=== PATIENT | female | born 1970 | race Caucasian/White ===

== ENCOUNTER 2023-06-15 07:34 | Outpatient (REF) | payer OTHER, SELFPAY ==
[2023-06-15 07:50] LABS: MANUAL DIFF FLAG NO
[2023-06-15 08:13] LABS: Basophils Absolute Auto 0.1 X10*3/uL (0.0-0.2); Basophils Percent Auto 1.2 % (0-2); Eosinophils Absolute Auto 0.2 X10*3/uL (0.0-0.4); Eosinophils Percent Auto 3.1 % (0-4); Hematocrit 40.9 % (37.0-47.0); Hemoglobin 13.5 g/dl (12.0-16.0); Imm Gran Abs Auto 0.01 X10*3/uL (0.00-0.03); Imm Gran Pct Auto 0.2 % (0.0-0.4); Lymphocytes Absolute Auto 1.1 X10*3/uL (1.2-4.9); Lymphocytes Percent Auto 21.9 % (20-40); Mean Corpuscular Hemoglobin 30.5 pg (27.0-33.0); Mean Corpuscular Volume 92.3 fL (80.0-98.0); Mean Platelet Volume 10.9 fL (9.4-12.3); Monocytes Absolute Auto 0.3 X10*3/uL (0.1-1.2); Neutrophils Absolute Auto 3.5 x10*3/uL (2.0-8.3); Neutrophils Percent Auto 67.6 % (45-73); Platelet Count 238 X10*3/uL (160-400); Red Blood Count 4.43 X10*6/uL (4.20-5.50); Red Cell Distribution Width 12.5 % (11.0-16.0); White Blood Count 5.2 X10*3/uL (4.8-10.8)
[2023-06-15 08:41] LABS: Alanine Aminotransferase 14 U/L (0-31); Albumin Level 4.2 g/dL (3.5-5.0); Alkaline Phosphatase 47 U/L (39-117); Anion Gap 13 (12-20); Aspartate Amino Transferase 14 U/L (5-31); Bilirubin Total 0.6 mg/dL (0.0-1.0); Blood Urea Nitrogen 11 mg/dL (9-16); Calcium 9.6 mg/dL (8.4-10.2); Carbon Dioxide 23 mmol/L (22-29); Chloride 109 mmol/L (96-108); Cholesterol 185 mg/dL (<200); Estimated Glomerular Filt Rate > 60; Glucose Random 103 mg/dL (60-115); HDL Cholesterol 54 mg/dL (>40); LDL Cholesterol Calculated 116 mg/dL (<100); Potassium 4.1 mmol/L (3.3-5.1); Sodium 141 mmol/L (135-145); Triglycerides 78 mg/dL (<150)
[2023-06-15 08:59] LABS: HIV AB/AG Nonreactive (Nonreactive); HIV Num 1 0.06 S/CO (0.00-0.99); ~HepC Num1 0.08 S/CO (0.00-0.79); ~Hepatitis B Surface Antibody REACTIVE (Nonreactive); ~Hepatitis C Antibody Nonreactive (Nonreactive)
== END 2023-06-15 07:35 | disposition home or self-care (01) ==
LOC: HO.LAB 07:34
PROVIDERS: PCP Physician Assistant; Visit Provider Physician Assistant
DX: Z00.00 Encounter for general adult medical examination without abnormal findings (principal); Z11.59 Encounter for screening for other viral diseases; Z11.4 Encounter for screening for human immunodeficiency virus [HIV]; Z72.89 Other problems related to lifestyle
CPT/HCPCS: 36415; 80053; 80061; 85025; 86706; 86803; 87389

== ENCOUNTER 2024-10-01 15:19 | Outpatient (REF) | payer OTHER, SELFPAY ==
--- OUTSIDE RECORDS SUMMARY | 2024-10-01 15:21 | XMS_ITS | Clinical Summary ---
Author Organization [facility] Address [address] [place] [address] Care Team Providers Care Agricultural Purchasing Agent Name Role Phone Ofelia Fatima PA-C Primary Care Provider + [phone] Source Comments PLEASE NOTE, if this patient is a minor, it may be UNLAWFUL to discuss sensitive information that is contained in these records (such as FAMILY PLANNING, MENTAL HEALTH or SUBSTANCE ABUSE) with the minor patient's parent or other person without the patient's specific authorization.[facility] Allergies No known active allergies Medications multivitamin-ir on-folic acid (CERTAVITE ANTIOXIDANT) 18-400 mg-mcg tabletIndicatio ns:Menopause Take 1 Tablet by mouth once daily with breakfast 90 Tablet 1 5 Active buPROPion HCL (WELLBUTRIN) 100 mg tabletIndicatio ns:Other depression TAKE 1 TABLET BY MOUTH 2 (TWO) TIMES DAILY 60 Tablet 5 Active gabapentin (NEURONTIN) 100 mg capsuleIndicati ons:Vasomotor symptoms due to menopause Take 1 Capsule by mouth nightly at bedtime 30 Capsule 3 5 Active Active Problems Problem Noted Date Diagnosed Date Paresthesia of tongue 09/24/2020 Depression 06/24/2020 Irritable bowel syndrome with diarrhea 1 Encounters Date Type Department Care Team Description 08/27/2024 3:40 PM EDT Telemedicine Visit [address] [phone] Ofelia Fatima PA-C Vasomotor symptoms due to menopause (Primary Dx) 08/08/2024 2:00 PM EDT Office Visit [address] [phone] Ofelia Fatima PA-C Menopause (Primary Dx); Breast cancer screening by mammogram; Screening for colorectal cancer; Vasomotor symptoms due to menopause from Last 3 Months Immunizations Immunization Administration Dates Next Due MMR (MMR II/Priorix) 12/14/2022,11/04/2022 PFIZER COVID VACCINE, PURPLE CAP, 12+ 06/12/2020 ,05/22/2020 Td(adult),2 Lf tetanus toxoid,preservative free 11/10/2019 ZOSTER VACCINE, RECOMBINANT (SHINGRIX) ,06/24/2020 Family History Medical History Relation Name Comments No Known Problems Daughter 1 No Known Problems Daughter 2 Emphysema Father Prostate Cancer Father Lung Cancer Mother Stroke Mother No Known Problems Son Relation Name Status Comments Daughter 1 Alive Daughter 2 Alive Father Mother Son Alive Social History Tobacco Use Types Packs/Day Years Used Date Smoking Tobacco: Former Cigarettes Q uit: 1992 Smokeless Tobacco: Never Tobacco Cessation:Counseling Given: Not Answered Comments:Quit 30 years ago - smoked off and on for about 10 years Alcohol Use Standard Drinks/Week Comments Never 0 (1 standard drink = 0.6 oz pur e alcohol) Social Connections Answer Date Recorded Connectedness 0 09/30/2021 Financial Resource Strain Answer Date R ecorded Financial Resource Strain 0 2021 Stress Answer Date Recorded Stress 0 09/30/2021 Physical Activity Answer Date Recorded Physical Activity 0 06/24/2020 Food Insecurity Answer Date Recorded Food 0 09/30/2021 Transportation Needs Answer Date Record ed Transportation 0 09/30/2021 Housing Stability Answer Date Recorded Housing 0 09/30/2021 Safety and Environment Answer Date Emilio rded Safety 0 09/30/2021 Utilities Answer Date Recorded Utilities 0 09/30/2021 Employment Answer Date Recorded Employment 0 06/24/2020 Comments No Sex and Gender Information Value Date Recorded Sex Assigned at Female 06/24/2020 8:02 PM PST Legal Sex Female 10:57 AM PST Gender Identity Female 06/24/2020 8:02 PM PST Sexual Orientation Straight 06/24/2020 8: 02 PM PST Last Filed Vital Signs Vital Sign Reading Time Taken Comments Blood Pressure 110/70 08/08/2024 2:10 PM EDT Pulse 80 08/08/2024 2:10 PM EDT Temperature 37.2 ??C (99 ??F) 08/08/2024 2:10 PM EDT Respiratory Rate 18 08/08/2024 2:10 PM EDT Oxygen Saturation 99% 08/08/2024 2:10 PM EDT Inhaled Oxygen Concentration - - Weight 68.9 kg (152 lb) 08/08/2024 2:10 PM EDT Height 160 cm (5' 3 ) 08/08/2024 2:10 PM EDT Body Mass Index 26.93 08/08/2024 2:10 PM EDT Plan of Treatment Health Maintenance Due Date Last Done Comments Anxiety Screening 1969 HPV Screening 1969 Hepatitis C Screening 1969 Pap + HPV 1969 Imm-Hepatitis B (1 of 3 - 19+ 3-dose series) 1988 Cervical Cancer Screening [address] Colonography 2014 Colonoscopy 2014 Colorectal Cancer Screening 2014 FIT/gFOBT 2014 Fecal DNA 2014 Flexible Sigmoidoscopy 2014 Imm-DTaP/Tdap/Td (1 - Tdap) 11/11/2019 11/10/2019 Breast Cancer Screening (Mammogram) 10/30/2022 10/30/2021, 10/22/2021 Depression Monitoring 09/07/2023 06/08/2023 , 09/30/2021, 06/02/2021, Additional history exists Alcohol and Drug Screen 05/16/2024 06/08/19, 06/02/2021, 06/24/2020 Annual Wellness (Adult): Indicated (All Coverage) 06/08/2024 06/08/2023, 09/30/2021, 06/24/2020 Diabetes Screening 09/30/2024 09/30/2021, 0 09/30/2021, 06/24/2020, Additional history exists [id number] ( season) 2024 04/17/2022, 06/12/2020, 05/22/2020 Postponed from 01/15/2024 (Patient postponement) Imm-Influenza (#1) 2024 Postponed from 01/15/2024 (Patient postponement) Hypertension Screening (#1) 08/08/2025 Tobacco Screening 08/27/2025 08/27/2024 Lipid Screening 09/30/2026 09/30/2021, 06/24/2020 HIV Screening Completed 06/24/2020 Imm-Zoster, Recombinant Completed 08/22/2020, 06/24 Cervical Ablation/Cold-Knife Conization Discontinued Cervical Cryotherapy Discontinued Colposcopy Discontinued Endometrial Biopsy Discontinued Excision/Leep Discontinued HPV Genotyping Discontinued Vaginal Pap Discontinued Vulvoscopy Discontinued Procedures Procedure Name Priority Date/Time Associated Diagnosis Comments HISTORIC MAMMOGRAM 10/30/2021 3: 00 AM EDT COMPREHENSIVE METABOLIC PANEL Routine 09/30/2021 2:55 PM EDT Encounter for general adult medical examination w/o abnormal findings LIPID PANEL Routine 09/30/2021 2:55 PM EDT Encounter for general adult medical examination w/o abnormal findings ANTIBODY HIV-1&HIV-2 SINGLE RESULT Routine 06/24/2020 2:55 PM EST Encounter for general adult medical examination w/o abnormal findings from Last 3 Months or Most Recently Relevant to Health Maintenance Results * HISTORIC MAMMOGRAM (10/30/2021 3:00 AM EDT) 10/30/2021 3:00 AM EDT Perla ODONNELLP IM MAMMO Final Resul t * LIPID PANEL (09/30/2021 2:55 PM EDT) CHOLESTEROL, TOTAL 167 <200 mg/dL [facility] HDL CHOLESTEROL 56 > OR = 50 mg/dL [facility] TRIGLYCERIDES 102 <150 mg/dL [facility] LDL-CHOLESTEROL 91 99 mg/dL (calc) [facility] Comment: Reference range: <100 Desirable range <100 mg/dL for primary prevention; ?? <70 mg/dL for patients with CHD or diabetic patients with > or = 2 CHD risk factors. LDL-C is now calculated using the Josh calculation, which is a validated novel method providing better accuracy than the Friedewald equation in the estimation of LDL-C. Ifeanyi FALLON et al. LISSETTE. 2013;310(19): 9154-0900 (http://education.Zeel/faq/XMR027) CHOL/HDLC RATIO 3.0 <5.0 (calc) [facility] NON-HDL CHOLESTEROL 111 <130 mg/dL (calc) [facility] Comment: For patients with diabetes plus 1 major ASCVD risk factor, treating to a non-HDL-C goal of <100 mg/dL (LDL-C of <70 mg/dL) is considered a therapeutic option. Blood Blood / Unknown 09/30/2021 2 :55 PM EDT 09/30/2021 2:56 PM EDT Narrative [facility] - 10/01/2021 4:29 AM EDT FASTING:NO Perla ODONNELLP LAB - BLOOD DRAW Final Resu lt [facility] [address] [address], [facility] [address] [address] * COMPRE METAB PANEL (09/30/2021 2:55 PM EDT) [facility] Signature GLUCOSE 70 65 - 139 mg/dL [facility] Comment: ?Non-fasting reference interval UREA NITROGEN (BUN) 14 7 - 25 mg/dL [facility] CREATININE (blood) 0.68 0.50 - 1.05 mg/dL [facility] Comment: For patients >49 years of age, the reference limit for Creatinine is approximately 13% higher for people identified as -Thai. GFR ESTIMATED 101 > OR = 60 mL/min/1 .73m2 [facility] EGFR 117 > OR = 60 mL/min/1 .73m2 [facility] BUN/CREATININE RATIO NOT APPLICABLE [facility] SODIUM 142 135 - 146 mmol/L [facility] POTASSIUM 4.3 3.5 - 5.3 mmol/L [facility] CHLORIDE 106 98 - 110 mmol/L [facility] CARBON DIOXIDE 28 20 - 32 mmol/L [facility] CALCIUM 9.4 8.6 - 10.4 mg/dL [facility] PROTEIN, TOTAL 6.8 6.1 - 8.1 g/dL [facility] ALBUMIN 4.2 3.6 - 5.1 g/dL [facility] GLOBULIN 2.6 1.9 - 3.7 g/dL (calc) [facility] ALBUMIN/GLOBULIN RATIO 1.6 1.0 - 2.5 (calc) [facility] BILIRUBIN, TOTAL 0.3 0.2 - 1.2 mg/dL [facility] ALKALINE PHOSPHATASE 49 37 - 153 U/L [facility] AST 13 10 - 35 U/L [facility] ALT 8 6 - 29 U/L [facility] Blood Blood / Unknown 09/30/2021 2 :55 PM EDT 09/30/2021 2:56 PM EDT Narrative [facility] - 10/01/2021 4:29 AM EDT FASTING:NO Perla ODONNELLP LAB - BLOOD DRAW Edited Res ult - Final [facility] [address] [address], [email or web address] [address] [address] * HIV-1 & HIV-2 ANTIBODIES (06/24/2020 2:55 PM EST) [facility] HIV 1 AND 2 ANTIBODY SCREEN NEGATIVE NEGATIVE [facility] Comment: This assay is a 4th generation assay allowing for earlier detection of HIV infection by detecting the presence of the HIV-1 p24 antigen as well as the traditional antibodies to HIV type 1 (including group O) and type 2. ??Use of a 4th generation assay is the current CDC recommendation for HIV screening. Blood Blood / Unknown 06/24/2020 2 :55 PM EST 06/24/2020 3:07 PM EST Narrative [facility] - 06/24/2020 6:10 PM EST [facility], a member of [address] [address] Moving Worker - Kaitlin Nolasco [place] [id number] ORD# [id number] Perla Cage [employer] LAB - BLOOD DRAW Final Resu lt [facility] [address] [place] [address], from Last 3 Months or Most Recently Relevant to Health Maintenance [place] [address] [employer] [place] Member Subscriber Plan / Payer (Ef fective 2022-Present) Name:Dana Jean Baptiste Relation to Subscriber:Self Name:Dana Jean Baptiste Payer ID:[id number] Type:Indemnity Address: [address] [address] [place] [address] Care Teams Agricultural Purchasing Agent Relationship Specialty Start Date End Date Ofelia Fatima PA-C [address] [place] [address] PCP - General 10/23/21
--- OUTSIDE RECORDS SUMMARY | 2024-10-01 15:21 | XMS_ITS | Clinical Summary ---
Author Organization [facility] ity Address [address] [place] [address] Care Team Providers Care Hazmat Truck Driver Name Role Phone Unavailable Primary Care Provider Unavailabl e Social History Tobacco Use Types Packs/Day Years Used Date Smoking Tobacco: Never Assessed Comments Unknown Sex and Gender Information Value Date Recorded Sex Assigned at Not on file Legal Sex Female 2:21 AM EST Gender Identity Not on file Sexual Orientation Not on file Plan of Treatment Health Maintenance Due Date Last Done Comments Breast Cancer Screening 1969 DTaP,Tdap,and Td Vaccines (1 - Tdap) 1988 Hepatitis B Vaccines (1 of 3 - 19+ 3-dose series) 1988 Cervical Cancer Screening: P ap Smear 1990 Pneumococcal Vaccine: 50+ Ye ars (1 of 1 - PCV) 12/25/2019 Zoster Vaccines (1 of 2) 12/25/2019 COVID-19 Vaccine ( - 2023-2 5 season) 2024 Influenza Vaccine (Season Ended) 2025 HIB Vaccines Aged Out No longer eligi ble based on patient's age to complete this topic HPV Vaccines Aged Out No longer eligi ble based on patient's age to complete this topic Hepatitis A Vaccines Aged Out No long er eligible based on patient's age to complete this topic IPV Vaccines Aged Out No longer eligi ble based on patient's age to complete this topic MMR Vaccines Aged Out No longer eligi ble based on patient's age to complete this topic Meningococcal ACWY Vaccine Aged Out N o longer eligible based on patient's age to complete this topic Meningococcal B Vaccine Aged Out No l onger eligible based on patient's age to complete this topic Pneumococcal Vaccine: Pediat rics (0 to 5 Years) and At-Risk Patients (6 to 64 Years) Aged Out No longer eligible b ased on patient's age to complete this topic RSV Immunization Patients Un lino 20 months Aged Out No longer eligible b ased on patient's age to complete this topic Varicella Vaccines Aged Out No longer eligible based on patient's age to complete this topic
== END 2024-10-01 15:20 | disposition home or self-care (01) ==
LOC: HO.MAMMO 15:19
PROVIDERS: PCP Physician Assistant; Visit Provider Physician Assistant
DX: Z12.31 Encounter for screening mammogram for malignant neoplasm of breast (principal)
CPT/HCPCS: 77063; 77067

== ENCOUNTER → 2024-10-01 15:30 | Outpatient (BNV) | payer OTHER, SELFPAY | PROVIDERS: PCP Physician Assistant; Visit Provider Internal Medicine | DX: Z12.31 Encounter for screening mammogram for malignant neoplasm of breast (principal) | CPT/HCPCS: 77063; 77067 ==

== ENCOUNTER 2025-01-24 13:25 | Outpatient (AMB) | payer OTHER, SELFPAY ==
--- NOTE | 2025-01-24 13:46 | A.OFFVIS_ITS ---
Vital Signs 3 01/24/25 13:49 Height 5 ft 4 in Weight 149 lb 14.629 oz BMI 25.7 BP 103/64 Blood Pressure Location Lt brachial Position Sitting Pulse 70 Intake Visit Reasons: Colonoscopy Screening Intake Note: Dana presents in the office as a colonoscopy screening. CC: She states that she is has IBS - never had a colo before! Allergies No Known Allergies Allergy (Unverified 01/31/20 16:21) HPI HPI Colonoscopy Screening: Details: 54-year-old female here for preprocedural meeting to discuss a screening colonoscopy. She is referred by [facility] in [place]. PMX Depression IBS/D Tongue paresthesias * SURGICAL HISTORY cholecystectomy Tubal ligation Uterine ablation * ALLERGIES: NKDA * [employer] LABS: None since last year TODAY'S VISIT ? Prior colonoscopy: NO Bowel or upper GI problems: SHe suffers IBS-D which she controls with Imodium no upper GI problems. Problems with anesthesia or sedation: No Cardiac or respiratory problems: NO Infectious disease problems: NO Family history: No [facility] Surgical History (Updated 01/24/25 @ 15:36 by HAIRSH White) S/P endometrial ablation History of tubal ligation History of cholecystectomy Review of Systems Const Denies fatigue, Denies fever(s), Denies night sweats, Denies poor appetite and Denies weight loss ENT Reports Normal hearing present, Denies dysphagia, Denies odynophagia, Denies throat swelling and Denies tongue swelling Card Reports no additional complaints Resp Reports no additional complaints GI Details: Denies abdominal pain, Denies melena, Denies bloating, Denies hematochezia, Reports constipation, Denies GI cramping, Denies dysphagia, Denies excessive flatus, Denies early satiety, Denies heartburn, Denies diarrhea, Reports loose stools, Denies nausea, Denies odynophagia, Denies vomiting and Denies hematemesis Skin/Breast Denies pruritus, Denies lesions, Denies rash and Denies jaundice Neuro Reports Normal hearing present and Denies Abnormal speech present Endo Denies fatigue Aller/Immun Denies throat swelling and Denies tongue swelling Physical Exam Vital Signs: Last Vital Signs Pulse 70 01/24/25 13:49 BP 103/64 01/24/25 13:49 BMI result Body Mass Index 25.7 Const General: cooperative, no acute distress, well developed and well groomed Nutritional Appearance: average body habitus and well nourished Orientation/consciousness: oriented to person, oriented to place and oriented to time Limitations: No language barrier HEENT Head: Yes normocephalic and Yes atraumatic Eyes General: appearance normal, both eyes and all related structures Pupils: Equal, round and reactive pupils present Neck Neck: Yes normal visual inspection and Yes no lymphadenopathy Thyroid: Thyroid normal Resp Effort & Inspection: normal respiratory effort and able to speak in complete sentences Auscultation: clear to auscultation bilaterally Cardio Rate: regular rate Rhythm: regular rhythm Heart sounds: Normal, physiologic split S2 sound present Peripheral pulses: radial pulses present and posterior tibial pulses present GI Inspection: No distended, No Abdominal panniculus present and Yes striae Palpation (GI): Soft to palpation, nontender, no guarding, not rigid and No hepatosplenomegaly present Percussion: Yes normal to percussion Auscultation: normal bowel sounds Rectal Exam - Female: deferred Abdomen image: 2 1. Surgical scars 2. Skin General skin exam: no rashes or lesions noted, turgor normal, skin not dry, no jaundice, No spider nevi and no striae Rashes: no rashes Nails: normal Neuro General: oriented to person, oriented to place and oriented to time Cranial nerves: Yes Equal, round and reactive pupils present and Yes Normal hearing present Speech: No Abnormal speech present Extrem General: Yes normal to inspection, No clubbing, No cyanosis and No edema Psych Appearance: grossly normal and well kempt Mental Status: mental status grossly normal Speech and movement: Normal speech and movement present Affect: normal affect Attitude: cooperative Thought process: Normal thought process present and not confabulating Thought content: Normal thought content present Insight: Good insight present (Psych) Judgement: Good judgement present (Psych) Assessment & Plan Assessment & Plan (1) Pre-op examination: Code(s): Z01.818 - Encounter for other preprocedural examination Category: Medical Plan ? Prior colonoscopy: NO Bowel or upper GI problems: SHe suffers IBS-D which she controls with Imodium no upper GI problems. Problems with anesthesia or sedation: No Cardiac or respiratory problems: NO Infectious disease problems: NO Family history: No Orders: Orders 2 Complete Blood Count Auto Diff Today Z81 - Encounter for other preprocedural examination Comprehensive Met. Panel Today Z81 - Encounter for other preprocedural examination Referrals 2 GI Procedure Notification Z81 - Encounter for other preprocedural examination Medications: New 2 sod sulf-pot chloride-mag sulf 1.479-0.188- 0.225 gram (Sutab) PO PER PKG DIR for colonoscopy prep 24 tabs 0RF Coding Level of Care Code New Pt Level 3 (24897) Diagnoses Pre-op examination Z
[2025-01-24 13:49] VITALS: BP 103/64; PULSE 70; BMI 25.7
--- OUTSIDE RECORDS SUMMARY | 2025-01-24 17:23 | XMS_ITS | Clinical Summary ---
Author Organization [facility] Address [address] [place] [address] Care Team Providers Care Ordnance Handler Name Role Phone Ofelia Fatima PA-C Primary Care Provider + [phone] Source Comments PLEASE NOTE, if this patient [...] with breakfast 90 Tablet 1 5 Active gabapentin (NEURONTIN) 100 mg capsuleIndicati ons:Vasomotor symptoms due to menopause TAKE 1 CAPSULE BY MOUTH NIGHTLY AT BEDTIME 30 Capsule 3 5 Active buPROPion HCL (WELLBUTRIN) 100 mg tabletIndicatio ns:Other depression TAKE 1 TABLET BY MOUTH 2 (TWO) TIMES DAILY. 60 Tablet 2 5 Active Active Problems Problem Noted Date Diagnosed Date Paresthesia of tongue 09/24/2020 Depression 06/24/2020 Irritable bowel syndrome with diarrhea 1 Immunizations Immunization Administration Dates Next Due MMR (MMR II/Priorix) 12/14/2022,11/04/2022 PFIZER COVID VACCINE, PURPLE CAP, 12+ 06/12/2020 ,05/22/2020 Td (adult),2 Lf tetanus toxo id (TDVAX), preservative free 11/10/2019 ZOSTER VACCINE, RECOMBINANT (SHINGRIX) ,06/24/2020 [...] 80 08/08/2024 2:10 PM EDT Temperature 37.2 C (99 F) 08/08/2024 2:10 PM EDT Respiratory Rate 18 [...] 1969 Imm-Hepatitis B (1 of 3 - 19 + 3-dose series) 1988 Cervical Cancer Screening [address] Colonography 2014 Colonoscopy 2014 Colorectal Cancer Screening 2014 FIT/gFOBT 2014 Fecal DNA 2014 Flexible Sigmoidoscopy 2014 Imm-DTaP/Tdap/Td (1 - Tdap) 11/11/2019 11/10/2019 Imm-Pneumococcal 50+ (1 of 1 - PCV) 12/25/2019 Depression Monitoring 09/07/2023 06/08/2023 , 09/30/2021, 06/02/2021, Additional history exists Alcohol and Drug Screen 05/16/2024 06/08/19 24, 06/02/2021, 06/24/2020 Annual Wellness (Adult): Indicated (All Coverage) 06/08/2024 06/08/2023, 09/30/2021, 06/24/2020 Diabetes Screening 09/30/2024 09/30/2021, 0 09/30/2021, 06/24/2020, Additional history exists Etk-RYTSD-60 ( season) 2025 04/17/2022, 06/12/2020, 05/22/2020 Imm-Influenza (#1) 2025 Hypertension Screening (#1) 08/08/2025 Breast Cancer Screening (Mammogram) 10/01/2025 10/01/2024, 10/30/2021, 10/22/2021 Tobacco Screening 12/12/2025 12/12/2024 Lipid Screening 09/30/2026 09/30/2021, 06/24/2020 HIV Screening Completed 06/24/2020 Imm-Zoster, Recombinant Completed 08/22/2020, 06/24 Cervical Ablation/Cold-Knife Conization Discontinued Cervical Cryotherapy Discontinued Colposcopy Discontinued Endometrial Biopsy Discontinued Excision/Leep Discontinued HPV Genotyping Discontinued Vaginal Pap Discontinued Vulvoscopy Discontinued Procedures Procedure Name Priority Date/Time Associated Diagnosis Comments REFERRAL FOR MAMMOGRAM Routine 3:00 AM EDT Breast cancer screening by mammogram COMPREHENSIVE METABOLIC PANEL Routine 09/30/2021 2:55 PM [...] Recently Relevant to Health Maintenance Results * REFERRAL FOR MAMMOGRAM SCREENING (10/01/2024 3:00 AM EDT) 10/01/2024 3:00 AM EDT Ofelia Fatima PA-C IMG RFL MAMMO Edited Resul t - Final * LIPID PANEL (09/30/2021 2:55 PM EDT) CHOLESTEROL, TOTAL 167 <200 mg/dL [facility] HDL CHOLESTEROL 56 > OR = 50 mg/dL [facility] TRIGLYCERIDES 102 <150 mg/dL [facility] LDL-CHOLESTEROL 91 99 mg/dL (calc) [facility] Comment: Reference range: <100 Desirable range <100 mg/dL for primary prevention; <70 mg/dL for patients with CHD or diabetic patients with > or = 2 CHD risk factors. LDL-C is now calculated using the Josh calculation, which is a validated novel method providing better accuracy than the Friedewald equation in the estimation of LDL-C. Ifeanyi SS et al. LISSETTE. 2013;310(19): 4161-8325 (http://education.[employer]/faq/TJM833) CHOL/HDLC RATIO 3.0 <5.0 (calc) [facility] NON-HDL CHOLESTEROL 111 <130 mg/dL (calc) [facility] Comment: For patients with diabetes plus 1 major ASCVD risk factor, treating to a non-HDL-C goal of <100 mg/dL (LDL-C of <70 mg/dL) is considered a therapeutic option. Blood Blood / Unknown 09/30/2021 2 :55 PM EDT 09/30/2021 2:56 PM EDT Narrative [facility] [facility] [facility] - 10/01/2021 4:29 AM EDT FASTING:NO Perla [facility] - BLOOD DRAW Final Resu lt [facility] [address] [address], [facility] [address] [address] * COMPRE METAB PANEL (09/30/2021 2:55 PM EDT) GLUCOSE 70 65 - 139 mg/dL [facility] Comment: Non-fasting reference interval UREA NITROGEN (BUN) 14 7 - 25 mg/dL [facility] CREATININE (blood) 0.68 0.50 - 1.05 mg/dL [facility] Comment: For patients >49 years of age, the reference limit for Creatinine is approximately 13% higher for people identified as -Beninese. GFR ESTIMATED 101 > OR = 60 mL/min/1 .73m2 [facility] EGFR 117 > OR = 60 mL/min/1 .73m2 [facility] BUN/CREATININE RATIO NOT APPLICABLE 6 - 22 [facility] SODIUM 142 135 - 146 mmol/L [facility] POTASSIUM 4.3 3.5 - 5.3 mmol/L [facility] CHLORIDE 106 98 - 110 mmol/L [facility] CARBON DIOXIDE 28 20 - 32 mmol/L [facility] CALCIUM 9.4 8.6 - 10.4 mg/dL [facility] PROTEIN, TOTAL 6.8 6.1 - 8.1 g/dL [facility] ALBUMIN 4.2 3.6 - 5.1 g/dL [facility] GLOBULIN 2.6 1.9 - 3.7 g/dL (calc) [facility] ALBUMIN/GLOBULIN RATIO 1.6 1.0 - 2.5 (calc) [facility] [employer] [facility] BILIRUBIN, TOTAL 0.3 0.2 - 1.2 mg/dL [facility] ALKALINE PHOSPHATASE 49 37 - 153 U/L [employer] [facility]NOST[facility] AST 13 10 - 35 U/L [facility] ALT 8 6 - 29 U/L [facility] Blood Blood / Unknown 09/30/2021 2 :55 PM EDT 09/30/2021 2:56 PM EDT Narrative [facility] - 10/01/2021 4:29 AM EDT FASTING:NO [facility] - BLOOD DRAW Edited Res ult - Final Performing Organization Address City/[facility]/ZIP Co de Phone Number [facility] [address] [address], [facility] [address] [address] * HIV-1 & HIV-2 ANTIBODIES (06/24/2020 2:55 PM EST) [facility] HIV 1 AND 2 ANTIBODY SCREEN NEGATIVE NEGATIVE [facility] [employer] [facility] Comment: This assay is a 4th generation assay allowing for earlier detection of HIV infection by detecting the presence of the HIV-1 p24 antigen as well as the traditional antibodies to HIV type 1 (including group O) and type 2. Use of a 4th generation assay is the current CDC recommendation for HIV screening. Blood Blood / Unknown 06/24/2020 2 :55 PM EST 06/24/2020 3:07 PM EST Narrative [facility] - 06/24/2020 6:10 PM EST [employer], a member of [address] [address] Teacher'S Assistant - Kaitlin Nolasco MD PT ID [id number] ORD# [id number] [facility] - BLOOD DRAW Final Resu lt Performing Organization Address City/[facility]/ZIP Co de Phone Number [facility] [employer] [address], from Last 3 Months or Most Recently Relevant to Health Maintenance Insurance [place] [address] [facility] Member Subscriber Plan / Payer (Ef fective 2022-Present) Name:Dana Jean Baptiste Relation to Subscriber:Self Name:Dana Jean Baptiste Payer ID:[id number] Type:Indemnity Address: [address] [address] [place] [address] Care Teams Ordnance Handler Relationship Specialty Start Date End Date Ofelia Fatima PA-C [address] [place] [address] PCP - General 10/23/21
== END 2025-01-24 14:46 | disposition home or self-care (01) ==
LOC: HO.HGI 13:25
PROVIDERS: PCP Physician Assistant; Visit Provider Nurse Practitioner
DX: Z01.818 Encounter for other preprocedural examination (principal); Z12.11 Encounter for screening for malignant neoplasm of colon
CPT/HCPCS: S0285

== ENCOUNTER 2025-03-11 09:24 | Outpatient (REF) | payer OTHER, SELFPAY ==
--- NOTE | ~2025-03-11 | XR_ITS ---
EXAMINATION: XR HIP 2 OR MORE VIEWS LEFT HISTORY: M25.559 - Pain in unspecified hip COMPARISON: There are no prior studies available for comparison. FINDINGS: Two views of the left hip are submitted. Osseous mineralization is normal. There is no fracture or dislocation. The joint space is maintained. The soft tissues are unremarkable. XR/XR hip LT min 2V IMPRESSION: Unremarkable examination of the left hip. Electronically signed by: Efraín Johnson MD 03/11/2025 10:54 AM EDT
--- NOTE | ~2025-03-11 | XR_ITS ---
EXAMINATION: XR KNEE, LEFT CLINICAL INFORMATION: M25.562 - Pain in left knee COMPARISON: X-ray 06/27/2017 TECHNIQUE: Four views of the left knee. FINDINGS: No fracture or joint effusion. Alignment is anatomic. Joint spaces are maintained. No abnormal soft tissue calcification. XR/XR knee LT 4V IMPRESSION: No acute findings Electronically signed by: Brenton Parsons MD 03/11/2025 10:54 AM EDT
== END 2025-03-11 09:25 | disposition home or self-care (01) ==
LOC: HO.HMGCX 09:24
PROVIDERS: PCP Physician Assistant; Visit Provider Physician Assistant Medical
DX: M79.605 Pain in left leg (principal); M25.562 Pain in left knee; M25.552 Pain in left hip; Z79.1 Long term (current) use of non-steroidal anti-inflammatories (NSAID)
CPT/HCPCS: 73502; 73564

== ENCOUNTER 2025-03-11 09:24 | Outpatient (AMB) | payer OTHER, SELFPAY ==
[2025-03-11 09:33] VITALS: BP 132/76; PULSE 76; TEMP 36.9; O2SAT 99; BMI 24.7
--- NOTE | 2025-03-11 09:33 | MHC.OFFWIV ---
Intake Vital Signs 03/11/25 09:33 Height 5 ft 4 in Weight 144 lb BMI 24.7 BP 132/76 Blood Pressure Location Lt brachial Position Sitting Pulse 76 Pulse Source Pulse Oximeter Temp 98.4 F Temp Source Oral Pulse Oximetry (%) 99 Oxygen Delivery Method Room Air Intake Visit Reasons: EP Left leg pain Intake Note: Patient presents with c/o left knee pain that radiates up into buttock & down to calf x3 weeks - unknown injury Allergies No Known Allergies Allergy (Unverified 03/11/25 09:36) HPI HPI Comments History of Present Illness Details History of Present Illness - The patient is a 54-year-old female presenting with worsening left leg pain. - The pain began approximately three weeks ago, initially perceived as a muscle pull, and has progressively worsened. - The pain is primarily located on the lateral aspect of the knee, radiating down to the front of the lower leg, and is exacerbated by sitting and walking. - Also has pain in the lateral left hip. - There is no history of trauma, swelling, or redness, and no numbness or tingling is reported. - The patient has been using naproxen with limited relief and has been advised to use a heating pad. - The patient has no family history of rheumatoid arthritis and has not tried any braces or supports. - The patient works in medical records, primarily sitting, and engages in light walking during lunch breaks. - She has no known trauma or falls. - She denies calf pain, edema, CP, SOB, ankle pain or foot pain. Physical Exam General: Cooperative, healthy appearing, comfortable, no acute distress and well developed Respiratory: Normal respiratory effort and able to speak in complete sentences. Clear to auscultation bilaterally Cardiovascular: Regular rate and rhythm. Normal S1 and S2 Skin: No rashes or lesions noted. Musculoskeletal: TTP of the left lateral hip. No TTP of the upper leg. No swelling or deformity noted of the knee. FROM of the knee. No click noted. Tenderness to palpation on the lateral aspect of the knee. No TTP of the medial condyle, medial meniscus, or posterior fossa. Negative anterior drawer test. Negative Alpa noted. DTR are 1+ on the LE. Negative Homans noted. FROM of the ankle. Ambulates with a steady gait. Strength is 5/5 on the LE bilaterally. Neuro: Sensation is intact on the LE bilaterally. REPLACED BY [facility] Surgical History (Updated 01/24/25 @ 15:36 by HARISH White) S/P endometrial ablation History of tubal ligation History of cholecystectomy Physical Exam Vital Signs: Last Vital Signs Temp 98.4 F 03/11/25 09:33 Pulse 76 03/11/25 09:33 BP 132/76 03/11/25 09:33 Pulse Ox 99 03/11/25 09:33 Oxygen Delivery Method Room Air 03/11/25 09:33 BMI result Body Mass Index 24.7 Assessment & Plan Assessment & Plan (1) Left leg pain: Code(s): M79.605 - Pain in left leg Plan Most likely OA vs IT band syndrome vs muscle strain vs tendonitis vs ligamentous tear plan - will order x-rays of the left hip and knee - rest ice and elevation - recommend physical therapy and she will need a referral from her PCP - prednisone 40 mg once a day for 5 days - will add Flexeril as needed - continue with the naproxen b.i.d. for pain - recommend that she follows up with her PCP for some blood work - will call her with results of the x-rays Orders: Orders XR hip LT min 2V Today M25.559 - Pain in unspecified hip Medications: New prednisone 40 mg (2 x 20 mg) PO DAILY 10 tabs 0RF 5 days cyclobenzaprine 5 mg PO Q8H PRN 20 tabs 0RF Muscle Spasm Coding Level of Care Code Est Pt Level 4 (10634) Diagnoses Left leg pain M79.605
--- OUTSIDE RECORDS SUMMARY | 2025-03-11 10:25 | XMS_ITS | Clinical Summary ---
Author Organization [employer] [facility] ity Address [address] [place] [address] Care Team Providers Care Abrasive Sawyer Name Role Phone Unavailable Primary Care Provider [...] 12/25/2019 Zoster Vaccines (1 of 2) 12/25/2019 Depression Screening 05/16/2024 COVID-19 Vaccine ( - 2023-2 5 season) 2025 Influenza Vaccine (#1) 2025 RSV Immunization Adult Patie nts (1 - 1-dose 75+ series) 2044 HIB Vaccines Aged Out No longer eligi [...]
== END 2025-03-11 10:47 | disposition home or self-care (01) ==
PROVIDERS: PCP Physician Assistant; Visit Provider Physician Assistant Medical
DX: M79.605 Pain in left leg (principal)

== ENCOUNTER → 2025-03-11 10:33 | Outpatient (BNV) | payer OTHER, SELFPAY | PROVIDERS: PCP Physician Assistant; Visit Provider Radiology Diagnostic Radiology | DX: M25.562 Pain in left knee (principal); M25.552 Pain in left hip | CPT/HCPCS: 73502; 73564 ==

== ENCOUNTER 2025-05-07 15:00 | Outpatient (RCR) | payer OTHER, SELFPAY | END 2025-05-13 15:16 | disposition home or self-care (01) | LOC: HO.PT 15:00 | PROVIDERS: PCP Physician Assistant; Visit Provider Physician Assistant | DX: M79.605 Pain in left leg (principal); T14.8XXA Other injury of unspecified body region, initial encounter | CPT/HCPCS: 97110; 97112; 97140; 97162 ==